=== PATIENT | male | born 1935 | race Caucasian/White ===

== ENCOUNTER → 2016-07-23 | Outpatient (CLI) | payer MEDICARE, BC ==
[~2016-07-23] MED LIST: ANTIVERT/2525 MG PO; ASPIRIN CHEWABL81 MG PO; CARDIZEM CD180 MG PO; CARDIZEM CD240 MG PO; COUMADIN2.5 M1 PO; COUMADIN5 M2 PO; DIGOXIN0.125 MG PO; LISINOPRIL40 MG PO; RESTASIS0.05% OU; TOPROL XL25 MG PO
[2016-07-23 11:53] LABS: HEMOGLOBIN 13.9 g/dl (14.0-18.0); MEAN CELL VOLUME 88.9 fl (80.0-94.0); MEAN CORPUSCULAR HGB 28.1 pg (27.0-31.0); MEAN CORPUSCULAR HGB CONC 31.6 g/dl (33.0-37.0); MEAN PLATELET VOLUME 9.4 fl (9.6-12.3); RED BLOOD COUNT 4.95 10*6/uL (4.50-5.90); RED CELL DISTRI WIDTH 16.9 % (0-14.5); WHITE BLOOD COUNT 8.9 10*3/uL (4.8-10.8)
[2016-07-23 12:29] LABS: ALBUMIN 3.6 gm/dl (3.1-4.5); ALKALINE PHOSPHATASE 116 U/L (45-117); BILIRUBIN, TOTAL 0.4 mg/dl (0.2-1.0); BUN 14 mg/dl (7-24); CARBON DIOXIDE 29 mmol/L (21-32); CHLORIDE 108 mmol/L (98-107); EST GLOM FILT AFRICAN AMERICAN > 60 ml/min; GLUCOSE 82 mg/dL (65-99); POTASSIUM 4.2 mmol/L (3.5-5.1); SGOT/AST 19 IU/L (3-35); SGPT/ALT 19 U/L (12-78); SODIUM 143 mmol/L (136-145)
[2016-07-23 12:57] LABS: VITAMIN D, 25-HYDROXY 25.6 ng/mL (30-100)
== END | disposition home or self-care (01) ==
LOC: LAB 11:34
PROVIDERS: Family Medicine
DX: C34.90 Malignant neoplasm of unspecified part of unspecified bronchus or lung (principal); D64.9 Anemia, unspecified; E55.9 Vitamin D deficiency, unspecified

== ENCOUNTER → 2016-08-03 | Outpatient (CLI) | payer MEDICARE, BC ==
--- NOTE | ~2016-08-03 | HM ---
[place], [place] HOLTER MONITOR REPORT [facility]KE [id number] UN[facility] #: [id number] ROOM: DOCTOR: SHAYNA GAINES MD BIRTHDATE: [birth year] DOS: 08/03/2016 24-HOUR HOLTER MONITOR The monitor was recorded from 08/03/2016 through 08/04/2016. The recording was analyzed and interpreted on 08/06/2016. INDICATIONS: Atrial fibrillation. FINDINGS: Basic rhythm is atrial fibrillation with a controlled ventricular response, average heart rate of 78. Heart rate varied from 48 beats per minute to 112 beats per minute. The patient had occasional premature ventricular contractions, 1 triplet and 12 couplets were recorded. No sustained ventricular tachycardia was seen. No prolonged pauses were recorded and the longest R-R interval was 1.9 seconds. The patient returned a diary which indicated several episodes of lightheadedness. These were all associated with atrial fibrillation with a controlled ventricular response. IMPRESSION: 1. Atrial fibrillation with excellent rate control. 2. Occasional premature ventricular contractions without sustained ventricular tachycardia. 3. Symptoms of lightheadedness did not correlate with any specific arrhythmias. SHAYNA GAINES MD CM:HOLTER:HOLTER MONITOR REPORT [id number] SHAYNA GAINES MD
[2016-08-03 10:06] LABS: PROTHROMBIN TIME 10.2 SECONDS (9.0-12.4)
== END | disposition home or self-care (01) ==
LOC: LAB 08:59
PROVIDERS: Family Medicine
DX: I48.2 Chronic atrial fibrillation (principal); Z79.01 Long term (current) use of anticoagulants

== ENCOUNTER → 2016-10-04 | Outpatient (CLI) | payer MEDICARE, BC ==
[2016-10-04 09:21] LABS: INTERNATIONAL NORM RATIO 1.7 (2.0-3.5); PROTHROMBIN TIME 18.7 SECONDS (9.0-12.4)
== END | disposition home or self-care (01) ==
LOC: LAB 08:29
PROVIDERS: Family Medicine
DX: Z79.01 Long term (current) use of anticoagulants (principal)

== ENCOUNTER → 2016-10-11 | Outpatient (CLI) | payer MEDICARE, BC ==
[2016-10-11 08:56] LABS: INTERNATIONAL NORM RATIO 1.7 (2.0-3.5); PROTHROMBIN TIME 18.1 SECONDS (9.0-12.4)
== END | disposition home or self-care (01) ==
LOC: LAB 08:08
PROVIDERS: Family Medicine
DX: Z79.01 Long term (current) use of anticoagulants (principal)

== ENCOUNTER → 2016-10-25 | Outpatient (CLI) | payer MEDICARE, BC ==
[2016-10-25 08:56] LABS: INTERNATIONAL NORM RATIO 2.1 (2.0-3.5); PROTHROMBIN TIME 22.9 SECONDS (9.0-12.4)
== END | disposition home or self-care (01) ==
LOC: LAB 08:08
PROVIDERS: Family Medicine
DX: Z79.01 Long term (current) use of anticoagulants (principal)

== ENCOUNTER → 2016-11-08 | Outpatient (CLI) | payer MEDICARE, BC ==
[2016-11-08 12:05] LABS: INTERNATIONAL NORM RATIO 1.9 (2.0-3.5)
== END | disposition home or self-care (01) ==
LOC: LAB 11:10
PROVIDERS: Family Medicine
DX: Z79.01 Long term (current) use of anticoagulants (principal)

== ENCOUNTER → 2016-11-20 | Outpatient (CLI) | payer MEDICARE, BC | END | disposition home or self-care (01) | LOC: RAD 09:59 | DX: I51.7 Cardiomegaly (principal) ==

== ENCOUNTER → 2016-12-11 | Outpatient (CLI) | payer MEDICARE, BC ==
[2016-12-11 09:46] LABS: PROTHROMBIN TIME 22.7 SECONDS (9.0-12.4)
== END | disposition home or self-care (01) ==
LOC: LAB 08:47
PROVIDERS: Family Medicine
DX: Z79.01 Long term (current) use of anticoagulants (principal)

== ENCOUNTER → 2017-01-10 | Outpatient (CLI) | payer MEDICARE, BC ==
[2017-01-10 09:01] LABS: PROTHROMBIN TIME 22.4 SECONDS (9.0-12.4)
== END | disposition home or self-care (01) ==
LOC: LAB 07:58
PROVIDERS: Family Medicine
DX: Z79.01 Long term (current) use of anticoagulants (principal)

== ENCOUNTER → 2017-01-24 | Outpatient (CLI) | payer MEDICARE, BC | END | disposition home or self-care (01) | LOC: RAD 08:59 | DX: C34.92 Malignant neoplasm of unspecified part of left bronchus or lung (principal); R07.9 Chest pain, unspecified ==

== ENCOUNTER → 2017-02-13 | Outpatient (CLI) | payer MEDICARE, BC ==
[2017-02-13 11:38] LABS: INTERNATIONAL NORM RATIO 2.4 (2.0-3.5); PROTHROMBIN TIME 26.9 SECONDS (9.0-12.4)
== END | disposition home or self-care (01) ==
LOC: LAB 10:51
PROVIDERS: Family Medicine
DX: Z79.01 Long term (current) use of anticoagulants (principal)

== ENCOUNTER → 2017-03-14 | Outpatient (CLI) | payer MEDICARE, BC ==
[2017-03-14 11:09] LABS: INTERNATIONAL NORM RATIO 2.2 (2.0-3.5)
== END | disposition home or self-care (01) ==
LOC: LAB 09:48
PROVIDERS: Family Medicine
DX: Z79.01 Long term (current) use of anticoagulants (principal)

== ENCOUNTER → 2017-04-16 | Outpatient (CLI) | payer MEDICARE, BC ==
[2017-04-16 10:36] LABS: INTERNATIONAL NORM RATIO 1.8 (2.0-3.5)
== END | disposition home or self-care (01) ==
LOC: LAB 09:37
PROVIDERS: Family Medicine
DX: Z51.81 Encounter for therapeutic drug level monitoring (principal); Z79.01 Long term (current) use of anticoagulants

== ENCOUNTER → 2017-04-30 | Outpatient (CLI) | payer MEDICARE, BC ==
[2017-04-30 11:12] LABS: FREE T4 1.09 ng/dl (0.76-1.46)
[2017-04-30 11:17] LABS: THYROID STIM HORMONE (HS) 1.04 uIU/ml (0.358-4.75)
== END | disposition home or self-care (01) ==
LOC: LAB 09:54 → US 05-02 15:00
PROVIDERS: Internal Medicine Endocrinology, Diabetes & Metabolism
DX: E04.1 Nontoxic single thyroid nodule (principal); I10 Essential (primary) hypertension

== ENCOUNTER → 2017-05-21 | Outpatient (CLI) | payer MEDICARE, BC ==
[2017-05-21 11:04] LABS: INTERNATIONAL NORM RATIO 2.2 (2.0-3.5)
== END | disposition home or self-care (01) ==
LOC: LAB 10:05
PROVIDERS: Family Medicine
DX: Z79.01 Long term (current) use of anticoagulants (principal)

== ENCOUNTER → 2017-07-22 | Outpatient (CLI) | payer MEDICARE, BC ==
[2017-07-22 11:29] LABS: INTERNATIONAL NORM RATIO 2.1 (2.0-3.5)
== END | disposition home or self-care (01) ==
LOC: LAB 10:36
PROVIDERS: Family Medicine
DX: Z51.81 Encounter for therapeutic drug level monitoring (principal); Z79.01 Long term (current) use of anticoagulants

== ENCOUNTER → 2017-08-27 | Outpatient (CLI) | payer MEDICARE, BC ==
[2017-08-27 12:02] LABS: INTERNATIONAL NORM RATIO 2.2 (2.0-3.5)
== END | disposition home or self-care (01) ==
LOC: LAB 11:03
PROVIDERS: Family Medicine
DX: I48.91 Unspecified atrial fibrillation (principal)

== ENCOUNTER → 2017-09-26 | Outpatient (CLI) | payer MEDICARE, BC | END | disposition home or self-care (01) | LOC: LAB 10:44 | PROVIDERS: Family Medicine | DX: I48.91 Unspecified atrial fibrillation (principal) ==

== ENCOUNTER → 2017-10-30 | Outpatient (CLI) | payer MEDICARE, BC ==
[2017-10-30 15:08] LABS: INTERNATIONAL NORM RATIO 2.5 (2.0-3.5)
== END | disposition home or self-care (01) ==
LOC: LAB 14:44
PROVIDERS: Family Medicine
DX: I48.91 Unspecified atrial fibrillation (principal)

== ENCOUNTER → 2017-11-26 | Outpatient (CLI) | payer MEDICARE, BC ==
[2017-11-26 10:25] LABS: INTERNATIONAL NORM RATIO 2.9 (2.0-3.5)
== END | disposition home or self-care (01) ==
LOC: LAB 09:39
PROVIDERS: Family Medicine
DX: I48.91 Unspecified atrial fibrillation (principal)

== ENCOUNTER → 2017-12-30 | Outpatient (CLI) | payer MEDICARE, BC ==
[2017-12-30 09:47] LABS: INTERNATIONAL NORM RATIO 2.6 (2.0-3.5)
== END | disposition home or self-care (01) ==
LOC: LAB 08:23
PROVIDERS: Family Medicine
DX: I48.91 Unspecified atrial fibrillation (principal)

== ENCOUNTER → 2018-01-28 | Outpatient (CLI) | payer MEDICARE, BC ==
[2018-01-28 12:16] LABS: INTERNATIONAL NORM RATIO 2.5 (2.0-3.5)
== END | disposition home or self-care (01) ==
LOC: LAB 11:33
PROVIDERS: Family Medicine
DX: I48.91 Unspecified atrial fibrillation (principal)

== ENCOUNTER → 2018-03-18 | Outpatient (CLI) | payer MEDICARE, BC | END | disposition home or self-care (01) | LOC: LAB 08:45 | PROVIDERS: Family Medicine | DX: I48.91 Unspecified atrial fibrillation (principal) ==

== ENCOUNTER → 2018-04-02 | Outpatient (CLI) | payer MEDICARE, BC ==
[2018-04-02 11:27] LABS: HEMATOCRIT 49.1 % (42.0-52.0); HEMOGLOBIN 16.4 g/dl (14.0-18.0); MEAN CELL VOLUME 89.8 fl (80.0-94.0); MEAN CORPUSCULAR HGB CONC 33.4 g/dl (33.0-37.0); MEAN PLATELET VOLUME 10.6 fl (9.6-12.3); RED BLOOD COUNT 5.47 10*6/uL (4.50-5.90); RED CELL DISTRI WIDTH 14.3 % (0-14.5); WHITE BLOOD COUNT 8.7 10*3/uL (4.8-10.8)
[2018-04-02 11:28] LABS: ALBUMIN 3.7 gm/dl (3.1-4.5); ALKALINE PHOSPHATASE 75 U/L (45-117); BUN 15 mg/dl (7-24); CHLORIDE 109 mmol/L (98-107); CHOLESTEROL 172 mg/dL (<200); CREATININE 1.17 mg/dL (0.70-1.30); HDL CHOLESTEROL 32 mg/dl (40-60); LDL CHOLESTEROL 114 mg/dL (9-159); SGOT/AST 17 IU/L (3-35); SGPT/ALT 20 U/L (12-78); SODIUM 142 mmol/L (136-145); TOTAL PROTEIN 7.3 gm/dL (6.4-8.2); TRIGLYCERIDES 129 mg/dl (<150); VLDL CHOLESTEROL 26 mg/dL (6-40)
== END | disposition home or self-care (01) ==
LOC: LAB 10:01
PROVIDERS: Family Medicine
DX: Z13.220 Encounter for screening for lipoid disorders (principal); E78.00 Pure hypercholesterolemia, unspecified; I48.91 Unspecified atrial fibrillation; C34.90 Malignant neoplasm of unspecified part of unspecified bronchus or lung; E04.1 Nontoxic single thyroid nodule

== ENCOUNTER → 2018-04-28 | Outpatient (CLI) | payer MEDICARE, BC | END | disposition home or self-care (01) | LOC: US 03:32 | DX: E04.2 Nontoxic multinodular goiter (principal) ==

== ENCOUNTER → 2018-05-21 | Outpatient (CLI) | payer MEDICARE, BC ==
[2018-05-21 11:47] LABS: INTERNATIONAL NORM RATIO 2.5 (2.0-3.5)
== END | disposition home or self-care (01) ==
LOC: LAB 11:01
PROVIDERS: Family Medicine
DX: I48.91 Unspecified atrial fibrillation (principal)

== ENCOUNTER → 2018-08-01 | Outpatient (CLI) | payer MEDICARE, BC ==
[~2018-08-01] MED LIST changes: +INDOMETHACIN25 M1 PO
[2018-08-01 09:17] LABS: INTERNATIONAL NORM RATIO 2.9 (2.0-3.5)
== END | disposition home or self-care (01) ==
LOC: LAB 08:24
PROVIDERS: Family Medicine
DX: I48.91 Unspecified atrial fibrillation (principal)

== ENCOUNTER → 2018-08-22 | Outpatient (CLI) | payer MEDICARE, BC | END | disposition home or self-care (01) | LOC: RAD 16:00 | DX: R06.2 Wheezing (principal); R06.02 Shortness of breath; Z87.891 Personal history of nicotine dependence ==

== ENCOUNTER → 2018-09-01 | Outpatient (CLI) | payer MEDICARE, BC ==
[2018-09-01 12:23] LABS: INTERNATIONAL NORM RATIO 2.2 (2.0-3.5)
== END | disposition home or self-care (01) ==
LOC: LAB 11:40
PROVIDERS: Family Medicine
DX: I48.91 Unspecified atrial fibrillation (principal)

== ENCOUNTER 2018-09-07 07:16 | Emergency (ER) | payer MEDICARE, BC ==
[~2018-09-07] VITALS: Ht 177.8 cm; Wt 83.0 kg
[~2018-09-07 07:16] MED LIST changes: -INDOMETHACIN25 M1 PO
[2018-09-07] MEDS ORDERED: INDOMETHACIN25 M1 PO (07:38)
== END 2018-09-07 08:30 | disposition home or self-care (01) ==
LOC: ED 07:16
DX: M10.071 Idiopathic gout, right ankle and foot (principal); I48.91 Unspecified atrial fibrillation; Z88.0 Allergy status to penicillin; Z88.2 Allergy status to sulfonamides; Z88.8 Allergy status to other drugs, medicaments and biological substances; Z88.1 Allergy status to other antibiotic agents; Z79.899 Other long term (current) drug therapy; Z79.82 Long term (current) use of aspirin

== ENCOUNTER → 2018-10-02 | Outpatient (CLI) | payer MEDICARE, BC ==
[~2018-10-02] MED LIST changes: +INDOMETHACIN25 M1 PO
[2018-10-02 13:59] LABS: HEMATOCRIT 48.2 % (42.0-52.0); HEMOGLOBIN 15.7 g/dl (14.0-18.0); MEAN CELL VOLUME 91.3 fl (80.0-94.0); MEAN CORPUSCULAR HGB 29.7 pg (27.0-31.0); MEAN CORPUSCULAR HGB CONC 32.6 g/dl (33.0-37.0); MEAN PLATELET VOLUME 10.4 fl (9.6-12.3); RED BLOOD COUNT 5.28 10*6/uL (4.50-5.90); RED CELL DISTRI WIDTH 14.4 % (0-14.5)
[2018-10-02 14:14] LABS: ALBUMIN 3.5 gm/dl (3.1-4.5); ALKALINE PHOSPHATASE 88 U/L (45-117); BUN 19 mg/dl (7-24); CHLORIDE 111 mmol/L (98-107); CHOLESTEROL 151 mg/dL (<200); CREATININE 1.35 mg/dL (0.70-1.30); HDL CHOLESTEROL 29 mg/dl (40-60); LDL CHOLESTEROL 90 mg/dL (9-159); POTASSIUM 4.2 mmol/L (3.5-5.1); SGOT/AST 19 IU/L (3-35); SGPT/ALT 19 U/L (12-78); SODIUM 143 mmol/L (136-145); TOTAL PROTEIN 7.1 gm/dL (6.4-8.2); TRIGLYCERIDES 159 mg/dl (<150); VLDL CHOLESTEROL 32 mg/dL (6-40)
[2018-10-02 14:16] LABS: FREE T4 1.12 ng/dl (0.76-1.46)
[2018-10-02 14:21] LABS: THYROID STIM HORMONE (HS) 0.909 uIU/ml (0.358-4.75)
== END | disposition home or self-care (01) ==
LOC: LAB 13:17
PROVIDERS: Family Medicine
DX: E78.00 Pure hypercholesterolemia, unspecified (principal); E55.9 Vitamin D deficiency, unspecified

== ENCOUNTER → 2018-11-07 | Outpatient (CLI) | payer MEDICARE, BC | END | disposition home or self-care (01) | LOC: CT 12:51 | DX: J43.9 Emphysema, unspecified (principal); Z87.891 Personal history of nicotine dependence ==

== ENCOUNTER → 2018-11-26 | Outpatient (CLI) | payer MEDICARE, BC | END | disposition home or self-care (01) | LOC: LAB 07:35 | PROVIDERS: Family Medicine | DX: I48.91 Unspecified atrial fibrillation (principal) ==

== ENCOUNTER → 2019-01-26 | Outpatient (CLI) | payer MEDICARE, BC ==
[2019-01-26 08:52] LABS: HEMATOCRIT 51.4 % (42.0-52.0); HEMOGLOBIN 16.5 g/dl (14.0-18.0); MEAN CELL VOLUME 92.6 fl (80.0-94.0); MEAN CORPUSCULAR HGB 29.7 pg (27.0-31.0); MEAN CORPUSCULAR HGB CONC 32.1 g/dl (33.0-37.0); MEAN PLATELET VOLUME 10.3 fl (9.6-12.3); RED BLOOD COUNT 5.55 10*6/uL (4.50-5.90); RED CELL DISTRI WIDTH 14.3 % (0-14.5); WHITE BLOOD COUNT 8.6 10*3/uL (4.8-10.8)
[2019-01-26 09:19] LABS: ALBUMIN 3.7 gm/dl (3.1-4.5); ALKALINE PHOSPHATASE 81 U/L (45-117); BUN 19 mg/dl (7-24); CHLORIDE 108 mmol/L (98-107); CHOLESTEROL 165 mg/dL (<200); CREATININE 1.31 mg/dL (0.70-1.30); HDL CHOLESTEROL 32 mg/dl (40-60); LDL CHOLESTEROL 109 mg/dL (9-159); POTASSIUM 3.9 mmol/L (3.5-5.1); SGOT/AST 19 IU/L (3-35); SGPT/ALT 16 U/L (12-78); SODIUM 141 mmol/L (136-145); TOTAL PROTEIN 7.3 gm/dL (6.4-8.2); TRIGLYCERIDES 122 mg/dl (<150); VLDL CHOLESTEROL 24 mg/dL (6-40)
== END | disposition home or self-care (01) ==
LOC: LAB 08:35
PROVIDERS: Family Medicine
DX: E78.00 Pure hypercholesterolemia, unspecified (principal); I48.91 Unspecified atrial fibrillation; E55.9 Vitamin D deficiency, unspecified; N18.3 Chronic kidney disease, stage 3 (moderate); C34.92 Malignant neoplasm of unspecified part of left bronchus or lung

== ENCOUNTER → 2019-03-05 | Outpatient (CLI) | payer MEDICARE, BC ==
[2019-03-05 10:12] LABS: INTERNATIONAL NORM RATIO 1.8 (2.0-3.5)
== END | disposition home or self-care (01) ==
LOC: LAB 08:46
PROVIDERS: Family Medicine
DX: I48.91 Unspecified atrial fibrillation (principal)

== ENCOUNTER → 2019-04-03 | Outpatient (CLI) | payer MEDICARE, BC | END | disposition home or self-care (01) | LOC: LAB 09:06 | PROVIDERS: Family Medicine | DX: I48.91 Unspecified atrial fibrillation (principal) ==

== ENCOUNTER → 2019-04-16 | Outpatient (CLI) | payer MEDICARE, BC ==
[2019-04-16 08:42] LABS: ALBUMIN 3.6 gm/dl (3.1-4.5); ALKALINE PHOSPHATASE 80 U/L (45-117); BUN 14 mg/dl (7-24); CHLORIDE 109 mmol/L (98-107); CREATININE 1.19 mg/dL (0.70-1.30); FREE T4 1.08 ng/dl (0.76-1.46); POTASSIUM 3.8 mmol/L (3.5-5.1); SGOT/AST 16 IU/L (3-35); SGPT/ALT 18 U/L (12-78); SODIUM 142 mmol/L (136-145)
== END | disposition home or self-care (01) ==
LOC: LAB 07:41
PROVIDERS: Internal Medicine Endocrinology, Diabetes & Metabolism
DX: E04.2 Nontoxic multinodular goiter (principal)

== ENCOUNTER → 2019-05-05 | Outpatient (CLI) | payer MEDICARE, BC ==
[2019-05-05 10:54] LABS: INTERNATIONAL NORM RATIO 1.7 (2.0-3.5)
== END | disposition home or self-care (01) ==
LOC: LAB 09:59
PROVIDERS: Family Medicine
DX: I48.91 Unspecified atrial fibrillation (principal)

== ENCOUNTER → 2019-05-13 | Outpatient (CLI) | payer MEDICARE, BC ==
[2019-05-13 09:42] LABS: INTERNATIONAL NORM RATIO 1.9 (2.0-3.5)
== END | disposition home or self-care (01) ==
LOC: LAB 08:48
PROVIDERS: Family Medicine
DX: I48.91 Unspecified atrial fibrillation (principal)

== ENCOUNTER → 2019-05-20 | Outpatient (CLI) | payer MEDICARE, BC ==
[2019-05-20 11:02] LABS: INTERNATIONAL NORM RATIO 2.8 (2.0-3.5)
== END | disposition home or self-care (01) ==
LOC: LAB 10:02
PROVIDERS: Family Medicine
DX: I48.91 Unspecified atrial fibrillation (principal)

== ENCOUNTER → 2019-06-24 | Outpatient (CLI) | payer MEDICARE, BC ==
[2019-06-24 09:04] LABS: INTERNATIONAL NORM RATIO 2.9 (2.0-3.5)
== END | disposition home or self-care (01) ==
LOC: LAB 08:16
PROVIDERS: Family Medicine
DX: I48.91 Unspecified atrial fibrillation (principal)

== ENCOUNTER → 2019-07-06 | Outpatient (CLI) | payer MEDICARE, BC | END | disposition home or self-care (01) | LOC: RAD 09:22 | DX: R05 Cough (principal) ==

== ENCOUNTER → 2019-07-13 | Outpatient (CLI) | payer MEDICARE, BC ==
[2019-07-13 10:44] LABS: INTERNATIONAL NORM RATIO 2.1 (2.0-3.5)
== END | disposition home or self-care (01) ==
LOC: LAB 10:17
PROVIDERS: Family Medicine
DX: I48.91 Unspecified atrial fibrillation (principal)

== ENCOUNTER → 2019-08-13 | Outpatient (CLI) | payer MEDICARE, BC ==
[2019-08-13 09:47] LABS: INTERNATIONAL NORM RATIO 1.8 (2.0-3.5)
== END | disposition home or self-care (01) ==
LOC: LAB 08:55
PROVIDERS: Family Medicine
DX: I48.91 Unspecified atrial fibrillation (principal)

== ENCOUNTER → 2019-09-11 | Outpatient (CLI) | payer MEDICARE, BC ==
[2019-09-11 11:24] LABS: INTERNATIONAL NORM RATIO 1.9 (2.0-3.5)
== END | disposition home or self-care (01) ==
LOC: LAB 10:49
PROVIDERS: Family Medicine
DX: I48.91 Unspecified atrial fibrillation (principal); Z79.01 Long term (current) use of anticoagulants

== ENCOUNTER 2019-11-10 22:34 | Emergency (ER) | payer MEDICARE, BC ==
[2019-11-10] VITALS (8 sets, daily range): BP systolic 138–180; BP diastolic 81–94
[~2019-11-10] VITALS: Ht 177.8 cm; Wt 86.2 kg
--- NOTE | 2019-11-10 22:47 | NUR ---
PT MEDICATED WITH 1 SL NITRO TAB PER MD MCBRIDE VERBAL ORDER.
[2019-11-10] MEDS ORDERED: WARFARIN SOD5 MG PO (22:48)
[2019-11-10] MEDS ORDERED: AVPAK AZITHROM250 M1 PO (22:48)
[2019-11-10] MEDS ORDERED: METOPROLOL25 MG PO (22:48)
--- NOTE | 2019-11-10 22:55 | NUR ---
PT REPORTS RELIEF FROM CHEST PAIN AT THIS TIME.STILL DIFFICULTY BREATHING.O2 IN PL[address] VIA NC.1 INCH NITRO PASTE APPLIED TO PT UPPER RT BACK.
--- NOTE | 2019-11-10 23:03 | NUR ---
PT REPORTS PAIN 0/10 AT THIS TIME.
--- NOTE | 2019-11-10 23:10 | NUR ---
REPORT GIVEN TO LEELEE @ [facility] MEDCALL.ADVISED TO ARRANGE TRANSPORT VIA GROUND TO [facility] [employer] SUPER[employer]OR.
[2019-11-10 23:13] LABS: BASO # 0.1 10*3/uL (0.0-0.1); BASO % 0.9 % (0.0-1.0); EOS # 0.2 10*3/uL (0.0-0.4); EOS % 2.1 % (1.0-4.0); HEMATOCRIT 54.1 % (42.0-52.0); LYMPH # 2.7 10*3/uL (1.3-4.4); LYMPH % 24.1 % (27.0-41.0); MEAN CORPUSCULAR HGB 30.3 pg (27.0-31.0); MEAN CORPUSCULAR HGB CONC 32.9 g/dl (33.0-37.0); MEAN PLATELET VOLUME 10.9 fl (9.6-12.3); MONO % 8.8 % (3.0-9.0); NEUT # 7.2 10*3/uL (2.3-7.9); NEUT % 63.8 % (47.0-73.0); PLATELET COUNT AUTOMATED 294 10*3/uL (130-400); RED BLOOD COUNT 5.88 10*6/uL (4.50-5.90); RED CELL DISTRI WIDTH 14.3 % (0-14.5); WHITE BLOOD COUNT 11.3 10*3/uL (4.8-10.8)
--- NOTE | 2019-11-10 23:13 | NUR ---
PT MEDICATED WITH MORPHINE PER EMAR FOR PAIN 07/17.
[2019-11-10 23:23] LABS: ACT PARTIAL THROMBO TIME 40.8 SECONDS (20.0-32.1); INTERNATIONAL NORM RATIO 2.3 (2.0-3.5)
--- NOTE | 2019-11-10 23:24 | NUR ---
PT REPORTS PAIN IS RELIEVED.PT STATES BREATHING IS A LITTLE BETTER AT THIS TIME.
--- NOTE | 2019-11-10 23:25 | NUR ---
PT DENIES ANY OPEN WOUNDS,SORES OR CUTS AT THIS TIME.
[2019-11-10 23:30] LABS: ALBUMIN 3.8 gm/dl (3.1-4.5); CREATININE 1.85 mg/dL (0.70-1.30); POTASSIUM 4.1 mmol/L (3.5-5.1); TOTAL PROTEIN 7.9 gm/dL (6.4-8.2)
--- NOTE | 2019-11-10 23:30 | NUR ---
SHARYN ON UNIT FOR PT TRANSPORT TO [facility] LEGAL SERVICES MANAGER.
[2019-11-10 23:33] LABS: TROPONIN I 0.655 ng/ml (<0.045)
--- NOTE | 2019-11-10 23:33 | NUR ---
PER MD RAE NESBITT, PT MEDICATED WITH 324 ASA PER FEED CRUSHER OPERATOR ORDER AT [facility].
--- NOTE | 2019-11-10 23:40 | NUR ---
NURSE TO NURSE REPORT GIVEN TO LARRY HERNANDEZ WITH [facility] VP SECURITIES.
== END 2019-11-10 23:45 | disposition short-term general hospital (02) ==
LOC: ED 22:34 → EDHOLD 23:15 → ED 23:45
PROVIDERS: Emergency Medicine
DX: I21.3 ST elevation (STEMI) myocardial infarction of unspecified site (principal); I10 Essential (primary) hypertension; I48.91 Unspecified atrial fibrillation; M10.9 Gout, unspecified; Z88.2 Allergy status to sulfonamides; Z88.8 Allergy status to other drugs, medicaments and biological substances; Z88.0 Allergy status to penicillin; Z79.82 Long term (current) use of aspirin; Z79.899 Other long term (current) drug therapy

== ENCOUNTER 2020-03-19 10:10 | Inpatient (IN) | payer MEDICARE, BC ==
[~2020-03-19] VITALS: Wt 82.6 kg
[~2020-03-19 10:10] MED LIST changes: +AVPAK AZITHROM250 M1 PO; +METOPROLOL25 MG PO; +WARFARIN SOD5 MG PO
[2020-03-19 10:17] VITALS: BP 161/86
[2020-03-19 10:30] LABS: BASO # 0.1 10*3/uL (0.0-0.1); BASO % 0.6 % (0.0-1.0); EOS # 0.1 10*3/uL (0.0-0.4); HEMATOCRIT 48.3 % (42.0-52.0); LYMPH # 1.6 10*3/uL (1.3-4.4); LYMPH % 12.4 % (27.0-41.0); MEAN CELL VOLUME 89.4 fl (80.0-94.0); MEAN CORPUSCULAR HGB 28.9 pg (27.0-31.0); MEAN CORPUSCULAR HGB CONC 32.3 g/dl (33.0-37.0); MEAN PLATELET VOLUME 10.9 fl (9.6-12.3); MONO # 1.1 10*3/uL (0.1-1.0); MONO % 8.5 % (3.0-9.0); NEUT # 9.7 10*3/uL (2.3-7.9); NEUT % 77.2 % (47.0-73.0); PLATELET COUNT AUTOMATED 306 10*3/uL (130-400); RED CELL DISTRI WIDTH 15.1 % (0-14.5); WHITE BLOOD COUNT 12.6 10*3/uL (4.8-10.8)
[2020-03-19 10:41] LABS: ACT PARTIAL THROMBO TIME 47.3 SECONDS (20.0-32.1); INTERNATIONAL NORM RATIO 2.8 (2.0-3.5)
[2020-03-19 10:52] LABS: ALBUMIN 3.6 gm/dl (3.1-4.5); ALKALINE PHOSPHATASE 106 U/L (45-117); BUN 14 mg/dl (7-24); CHLORIDE 109 mmol/L (98-107); CREATININE 1.21 mg/dL (0.70-1.30); POTASSIUM 3.9 mmol/L (3.5-5.1); SGOT/AST 24 IU/L (3-35); SGPT/ALT 28 U/L (12-78); SODIUM 141 mmol/L (136-145); TOTAL PROTEIN 6.9 gm/dL (6.4-8.2)
[2020-03-19 11:08] LABS: TROPONIN I 0.352 ng/ml (<0.045)
[2020-03-19 11:57] VITALS: BP 155/77
[2020-03-19 13:16] VITALS: BP 172/88
--- NOTE | 2020-03-19 13:16 | NUR ---
A 84, admitted to 4E, under the services of Dr. EVELINE VINCENT,TIFFANY Plasencia with a diagnosis of CHEST PAIN. Chief complaint is CHEST PAIN. Patient arrived via wheel chair from ER. Monitor applied. Initial assessment completed. Vital signs taken and recorded. DR. EVELINE VINCENT,TIFFANY Plasencia notified of admission to the unit. Orders received. See assessment for past medical history, medications and allergies. Patient and/or family oriented to unit. [facility] visitation policy reviewed. Clothing/patient valuable form completed. SCOTT DE ANDA
[2020-03-19 13:27] VITALS: BP 172/88
--- NOTE | 2020-03-19 13:35 | NUR ---
DR CAMPOS ANSWERING SERVICE NOTIFIED OF NEW CONSULT FOR CHEST PAIN AND ALSO LEFT FOR CALL BACK REGARDING ELEVATED TROPONIN OF 1.620.
[2020-03-19] MEDS ORDERED: LIPITOR80 MG PO (13:37)
[2020-03-19] MEDS ORDERED: PLAVIX75 M1 PO (13:37)
--- NOTE | 2020-03-19 13:53 | NUR ---
MADE DR. ABEBE AWARE OF CONSULT AND PT ELEVATED TROPONIN. 1.620, HE WILL SEE PT SHORTLY.
--- NOTE | 2020-03-19 14:15 | NUR ---
DR. MOSQUERA MADE AWARE OF PT ADMISSION AND PT REQUESTING MEAL TRAY. NEW ORDERS OBTAINED.
[2020-03-19 16:00] VITALS: BP 155/74
--- NOTE | 2020-03-19 16:50 | NUR ---
MORPHINE 2 MG GIVEN FOR C/O CHEST PAIN AND PRESSURE.-09/14.WILL CONTINUE TO MONITOR. AWAITING [facility] TO CALL WITH BED. PT TO TRANSFER TO [facility] TO F/U WITH DR HERMAN. PT CURRENTLY PLACED ON 2LNC FOR COMFORT. VITALS OBTAINED. DR MOSQUERA INTO SPEAK TO FAMILY AT BEDSIDE. PT CURRENTLY DENIES CP/PRESSURE. MORPHINE SEEMS TO RESOLVED FOR THE MOMENT.WILL CONTINUE TO MONITOER. CALL LIGHT IN REACH.
--- NOTE | 2020-03-19 17:00 | NUR ---
DR. CAMPOS AT BEDSIDE FOR CONSULT.
--- NOTE | 2020-03-19 17:03 | NUR ---
IV started BABATUNDE with #22 protective cath after 1 attempts. Site prepped with Chloroprep. Sterile dressing applied. Patient tolerated procedure well. by joann garcia rn.
[2020-03-19 17:10] VITALS: BP 162/88
--- NOTE | 2020-03-19 17:20 | NUR ---
PER PT CHEST PAIN/PRESSURE IS GONE, MORPHINE REPORTED EFFECTIVE.
--- NOTE | 2020-03-19 18:52 | NUR ---
REPORT CALLED TO [facility] PRESBY TO LARRY OSORIO.
--- NOTE | 2020-03-19 18:53 | NUR ---
Discharge instructions reviewed with patient/family. Patient receptive and verbalizes understanding. Follow-up care arranged. Written instructions given to patient/family.TRANSPORTED TO [facility]IA [facility] FOR TX OF ACUTE SC. SCOTT DE ANDA
== END 2020-03-19 18:53 | disposition short-term general hospital (02) | DRG 281 ==
LOC: ED 10:10 → EDHOLD 12:53 → 4E 13:08
PROVIDERS: Emergency Medicine; ADMIT Internal Medicine; ATTEND Internal Medicine
DX: I21.4 Non-ST elevation (NSTEMI) myocardial infarction (principal); I48.21 Permanent atrial fibrillation; I25.10 Atherosclerotic heart disease of native coronary artery without angina pectoris; E50.7 Other ocular manifestations of vitamin A deficiency; H27.01 Aphakia, right eye; I10 Essential (primary) hypertension; E78.2 Mixed hyperlipidemia; M1A.9XX0 Chronic gout, unspecified, without tophus (tophi); Z88.0 Allergy status to penicillin; Z88.2 Allergy status to sulfonamides; Z95.5 Presence of coronary angioplasty implant and graft; Z90.49 Acquired absence of other specified parts of digestive tract; Z82.49 Family history of ischemic heart disease and other diseases of the circulatory system; Z79.899 Other long term (current) drug therapy

== ENCOUNTER 2020-04-14 09:57 | Observation (INO) | payer MEDICARE, BC ==
[~2020-04-14] VITALS: Ht 177.8 cm; Wt 81.6 kg
[2020-04-14] VITALS (10 sets, daily range): BP systolic 122–158; BP diastolic 63–86
[~2020-04-14 09:57] MED LIST changes: +LIPITOR80 MG PO; +PLAVIX75 M1 PO
[2020-04-14 10:15] LABS: BASO % 0.3 % (0.0-1.0); EOS # 0.1 10*3/uL (0.0-0.4); EOS % 1.1 % (1.0-4.0); HEMATOCRIT 44.6 % (42.0-52.0); LYMPH # 1.5 10*3/uL (1.3-4.4); LYMPH % 12.5 % (27.0-41.0); MEAN CELL VOLUME 91.4 fl (80.0-94.0); MEAN CORPUSCULAR HGB 28.9 pg (27.0-31.0); MEAN CORPUSCULAR HGB CONC 31.6 g/dl (33.0-37.0); MEAN PLATELET VOLUME 9.6 fl (9.6-12.3); MONO # 1.3 10*3/uL (0.1-1.0); MONO % 11.6 % (3.0-9.0); NEUT # 8.6 10*3/uL (2.3-7.9); NEUT % 74.2 % (47.0-73.0); PLATELET COUNT AUTOMATED 365 10*3/uL (130-400); RED BLOOD COUNT 4.88 10*6/uL (4.50-5.90); RED CELL DISTRI WIDTH 15.6 % (0-14.5); WHITE BLOOD COUNT 11.6 10*3/uL (4.8-10.8)
[2020-04-14 10:26] LABS: ACT PARTIAL THROMBO TIME 41.2 SECONDS (20.0-32.1); INTERNATIONAL NORM RATIO 1.4 (2.0-3.5)
--- NOTE | 2020-04-14 10:28 | NUR ---
PT STATING PAIN DECREASED TO A 1 ON 1-10 SCALE AFTER NITRO.SG TERRAZAS DNP NOTIFIED.
[2020-04-14 10:35] LABS: ALBUMIN 3.6 gm/dl (3.1-4.5); ALKALINE PHOSPHATASE 98 U/L (45-117); BUN 14 mg/dl (7-24); CHLORIDE 111 mmol/L (98-107); CREATININE 1.21 mg/dL (0.70-1.30); SGOT/AST 15 IU/L (3-35); SGPT/ALT 21 U/L (12-78); SODIUM 141 mmol/L (136-145); TOTAL PROTEIN 7.2 gm/dL (6.4-8.2)
[2020-04-14 10:37] LABS: TROPONIN I 0.081 ng/ml (<0.045)
--- NOTE | 2020-04-14 10:43 | NUR ---
PT POSITIONED FOR COMFORT WATCHING T.V.,SAFETY PRECAUTIONS INTACT AND CALL LIGHT WITHIN REACH.
[2020-04-14] MEDS ORDERED: ZESTRIL10 MG PO (11:21)
[2020-04-14] MEDS ORDERED: LASIX20 MG PO (11:21)
--- NOTE | 2020-04-14 14:42 | NUR ---
PT WITH SEVERAL RED/ECCHYMOTIC AREAS NOTED TO BUE D/T "WHERE THEY GET BLOOD FROM ME OR I BUMP MYSELF AN I AM ON BLOOD THINNERS". NO OPEN AREAS NOTED.
--- NOTE | 2020-04-14 16:28 | NUR ---
PT WITH UPPER EPIGASTRIC PAIN @ A 3 ON 1-10 SCALE,KAYLA TERRAZAS DNP NOTIIFED.
--- NOTE | 2020-04-14 16:42 | NUR ---
PT STATING PAIN FREE @ THIS TIME,PT EATING LUNCH TRAY AND NO ADDITIONAL COMPLAINTS VOICED.CALL LIGHT WITHIN REACH.
[2020-04-14] MEDS ORDERED: XARE20MG PO ×2 (19:11→22:42)
--- NOTE | 2020-04-14 19:28 | NUR ---
DR. MANJARREZ(WEB SITE DESIGNER ACQUISITION LEAD)CALLED IN TO CONFIRM CONSULT FOR PT AND POSSIBLE STRESS TEST ORDER IN AM DEEMED NECESSARY PER WEB SITE DESIGNER INSTRUCTED PER DR MUÑOZ.
[2020-04-14] MEDS ORDERED: METOPROLOL SUCC25 M2 PO (19:38)
[2020-04-14] MEDS ORDERED: ATORVASTATIN CA80 M1 PO (22:26)
--- NOTE | 2020-04-14 22:30 | NUR ---
The assessment has been completed. TORI TENA Time: 2229 A 84 year old MALE admitted to under services of DR. WANDA VINCENT,EBONI. Pt. arrived via ambulatory from ER. Chief complaint: MIDSTERNAL CHEST PRESSURE WITH PAIN UP INTO HIS NECK.HAD 2 STENTS PLACED ON Mar, 4 STENTS PLACED IN NOVEMBER. WOKE UP WITH PRESSURE AT 3 AM. . TORI TENA
--- NOTE | 2020-04-14 23:00 | NUR ---
CALL PLACED TO DR CAMPOS ANSWERING SERVICE REGARDING PTS CONTINUED CHEST PAIN. PT STATES NITRO PATCH IS NOT WORKING AND HE FEELS WORSE THAN WHEN HE CAME IN EARLIER. 8/10 MIDSTERNAL CHEST ACHING/PRESSURE FEELING THAT IS WORSE W INSPIRATION. PT STATES HE IS MINIMALLY SOB AND IT IS WORSE W EXERTION.VSS AT THIS TIME. SLIGHT EXP WHEEZE NOTED. AFIB ON THE MONITOR 90-LOW 100'S. AWAITING CALL BACK. WILL CONTINUE TO MONITOR. CALL LIGHT WITHIN REACH.
--- NOTE | 2020-04-14 23:37 | NUR ---
STILL WAITING CALL BACK FROM CARDIOLOGY. PT SITTING UP RESTING IN BED. STATES HE FEELS A LITTLE BETTER AND IS GOING TO TRY AND SLEEP. RESPS EASY AND NON LABORED. CALL LIGHT WITHIN REACH. WILL CONTINUE TO MONITOR.
--- NOTE | 2020-04-14 23:46 | NUR ---
PE DR MU[facility]
[2020-04-15] VITALS (9 sets, daily range): BP systolic 94–153; BP diastolic 51–85
--- NOTE | 2020-04-15 00:26 | NUR ---
AWAITING BED TO TRANSFER PT TO [facility]. PT CURRENTLY SLEEPING. RESPS EASY AND NON LABORED. NO S/S OF DISTRESS NOTED. WILL CONTINUE TO MONITOR. CALL LIGHT WITHIN REACH.
--- NOTE | 2020-04-15 00:45 | NUR ---
PT TRANSFERRED TO ICU 3 FROM FOR CHEST PAIN. PT AWAKE, ALERT AND ORIENTED, SKIN WARM AND DRY. REPORT RECEIVED FROM TORI. BP 153/85, P 99, R 20, T 97.5, O2 93% ON RA. O2 AT 2L NC PLACED FOR COMFORT. PT STATES PAIN IS A 3 OR 4 OUT OF 10. HURT WORSE WITH INSPIRATION.
--- NOTE | 2020-04-15 00:45 | NUR ---
PT TRANSFERRED TO [facility]. PER PT DO NOT CALL HIS UNTIL THE MORNING BECAUSE SHE IS SLEEPING.
--- NOTE | 2020-04-15 01:00 | NUR ---
DR MUÑOZ CALLED AND NEW ORDERS RECEIVED.
--- NOTE | 2020-04-15 09:30 | NUR ---
DISCHARGED TO [facility] ORACLE ASCP CONSULTANT. REPORT GIVEN TO ER.
== END 2020-04-15 09:30 | disposition home or self-care (01) ==
LOC: ED 09:57 → EDHOLD 14:16 → 5E 22:21 → ICCU 04-15 00:41
PROVIDERS: Emergency Medicine; ADMIT Internal Medicine; ATTEND Internal Medicine
DX: R07.2 Precordial pain (principal); I25.10 Atherosclerotic heart disease of native coronary artery without angina pectoris; I48.91 Unspecified atrial fibrillation; I10 Essential (primary) hypertension; E78.2 Mixed hyperlipidemia

== ENCOUNTER 2020-04-20 03:56 | Emergency (ER) | payer MEDICARE, BC ==
[~2020-04-20] VITALS: Ht 177.8 cm; Wt 81.6 kg
[~2020-04-20 03:56] MED LIST changes: +ATORVASTATIN CA80 M1 PO; +LASIX20 MG PO; +METOPROLOL SUCC25 M2 PO; +XARE20MG PO; +ZESTRIL10 MG PO
[2020-04-20 04:18] LABS: BASO # 0.1 10*3/uL (0.0-0.1); BASO % 0.4 % (0.0-1.0); EOS # 0.2 10*3/uL (0.0-0.4); EOS % 1.8 % (1.0-4.0); HEMATOCRIT 43.3 % (42.0-52.0); LYMPH # 1.5 10*3/uL (1.3-4.4); LYMPH % 13.4 % (27.0-41.0); MEAN CORPUSCULAR HGB 28.6 pg (27.0-31.0); MEAN CORPUSCULAR HGB CONC 31.4 g/dl (33.0-37.0); MEAN PLATELET VOLUME 10.2 fl (9.6-12.3); MONO # 1.2 10*3/uL (0.1-1.0); MONO % 10.9 % (3.0-9.0); NEUT # 8.2 10*3/uL (2.3-7.9); NEUT % 73.1 % (47.0-73.0); PLATELET COUNT AUTOMATED 402 10*3/uL (130-400); RED BLOOD COUNT 4.76 10*6/uL (4.50-5.90); WHITE BLOOD COUNT 11.3 10*3/uL (4.8-10.8)
[2020-04-20 04:30] LABS: ACT PARTIAL THROMBO TIME 47.3 SECONDS (20.0-32.1); INTERNATIONAL NORM RATIO 1.6 (2.0-3.5)
[2020-04-20 04:36] LABS: ALBUMIN 3.2 gm/dl (3.1-4.5); ALKALINE PHOSPHATASE 96 U/L (45-117); BUN 22 mg/dl (7-24); CHLORIDE 108 mmol/L (98-107); CREATININE 1.24 mg/dL (0.70-1.30); SGOT/AST 40 IU/L (3-35); SGPT/ALT 40 U/L (12-78); SODIUM 139 mmol/L (136-145); TOTAL PROTEIN 7.4 gm/dL (6.4-8.2)
== END 2020-04-20 07:15 | disposition short-term general hospital (02) ==
LOC: ED 03:56
PROVIDERS: Emergency Medicine
DX: I21.4 Non-ST elevation (NSTEMI) myocardial infarction (principal); M10.9 Gout, unspecified; Z88.0 Allergy status to penicillin; Z88.2 Allergy status to sulfonamides; Z88.1 Allergy status to other antibiotic agents; Z88.8 Allergy status to other drugs, medicaments and biological substances; Z79.899 Other long term (current) drug therapy

== ENCOUNTER 2020-10-07 17:37 | Emergency (ER) | payer MEDICARE, BC ==
[~2020-10-07] VITALS: Ht 177.8 cm; Wt 81.6 kg
[2020-10-07] MEDS ORDERED: DOXYCYCLINE100 M3 PO (18:18)
== END 2020-10-07 18:38 | disposition home or self-care (01) ==
LOC: ED 17:37
DX: S41.152A Open bite of left upper arm, initial encounter (principal); I10 Essential (primary) hypertension; I48.91 Unspecified atrial fibrillation; M10.9 Gout, unspecified; Z88.0 Allergy status to penicillin; Z79.899 Other long term (current) drug therapy; Z98.890 Other specified postprocedural states; W54.0XXA Bitten by dog, initial encounter; Y93.89 Activity, other specified; Y92.89 Other specified places as the place of occurrence of the external cause; Y99.8 Other external cause status

== ENCOUNTER 2020-10-08 12:57 | Emergency (ER) | payer MEDICARE, BC ==
[~2020-10-08] VITALS: Ht 177.8 cm; Wt 81.6 kg
[~2020-10-08 12:57] MED LIST changes: +DOXYCYCLINE100 M3 PO
== END 2020-10-08 13:48 | disposition home or self-care (01) ==
LOC: ED 12:57
DX: S60.222A Contusion of left hand, initial encounter (principal); S60.512A Abrasion of left hand, initial encounter; Z88.0 Allergy status to penicillin; Z88.8 Allergy status to other drugs, medicaments and biological substances; Z98.890 Other specified postprocedural states; Z90.49 Acquired absence of other specified parts of digestive tract; W54.0XXA Bitten by dog, initial encounter; Y93.89 Activity, other specified; Y92.89 Other specified places as the place of occurrence of the external cause; Y99.8 Other external cause status; Z79.899 Other long term (current) drug therapy

== ENCOUNTER → 2020-10-11 | Outpatient (CLI) | payer MEDICARE, BC | LOC: WOUNDCARE 00:58 | PROVIDERS: ATTEND Surgery | DX: S51.852A Open bite of left forearm, initial encounter (principal); I25.2 Old myocardial infarction; Z90.49 Acquired absence of other specified parts of digestive tract; Z98.41 Cataract extraction status, right eye; Z98.42 Cataract extraction status, left eye; Z87.891 Personal history of nicotine dependence; Z88.0 Allergy status to penicillin; Z88.2 Allergy status to sulfonamides; W54.0XXA Bitten by dog, initial encounter; Y93.89 Activity, other specified; Y92.89 Other specified places as the place of occurrence of the external cause; Y99.8 Other external cause status ==

== ENCOUNTER → 2020-10-18 | Outpatient (CLI) | payer MEDICARE, BC | LOC: WOUNDCARE 00:41 | PROVIDERS: ATTEND Nurse Practitioner | DX: S51.852D Open bite of left forearm, subsequent encounter (principal); I25.2 Old myocardial infarction; Z90.49 Acquired absence of other specified parts of digestive tract; Z98.41 Cataract extraction status, right eye; Z98.42 Cataract extraction status, left eye; Z87.891 Personal history of nicotine dependence; Z88.0 Allergy status to penicillin; Z88.2 Allergy status to sulfonamides; W54.8XXD Other contact with dog, subsequent encounter ==

== ENCOUNTER → 2020-10-25 | Outpatient (CLI) | payer MEDICARE, BC | LOC: WOUNDCARE 01:17 | PROVIDERS: ATTEND Nurse Practitioner | DX: S51.852D Open bite of left forearm, subsequent encounter (principal); S41.101D Unspecified open wound of right upper arm, subsequent encounter; I25.2 Old myocardial infarction; Z90.49 Acquired absence of other specified parts of digestive tract; Z98.41 Cataract extraction status, right eye; Z98.42 Cataract extraction status, left eye; Z87.891 Personal history of nicotine dependence; Z88.0 Allergy status to penicillin; Z88.2 Allergy status to sulfonamides; W54.8XXD Other contact with dog, subsequent encounter ==

== ENCOUNTER 2021-07-11 17:45 | Emergency (ER) | payer MEDICARE, BC | END 2021-07-11 19:24 | disposition home or self-care (01) | LOC: ED 17:45 | DX: S61.411A Laceration without foreign body of right hand, initial encounter (principal); I10 Essential (primary) hypertension; M10.9 Gout, unspecified; Z88.0 Allergy status to penicillin; Z88.1 Allergy status to other antibiotic agents; Z88.8 Allergy status to other drugs, medicaments and biological substances; Z79.899 Other long term (current) drug therapy; X78.0XXA Intentional self-harm by sharp glass, initial encounter; Y93.89 Activity, other specified; Y92.89 Other specified places as the place of occurrence of the external cause; Y99.8 Other external cause status ==

== ENCOUNTER 2023-11-29 19:46 | Emergency (ER) | payer MEDICARE, BC ==
[~2023-11-29] VITALS: Ht 177.8 cm; Wt 77.1 kg
[~2023-11-29 19:46] MED LIST changes: -Coumadin2.5 MG PO; -GUAIFENESIN PS PO; -VIBRAMYCIN100 MG PO
[2023-11-29] MEDS ORDERED: Coumadin2.5 MG PO (20:08)
[2023-11-29 21:14] LABS: BASO % 0.2 % (0.0-1.0); EOS % 0.1 % (1.0-4.0); HEMATOCRIT 48.9 % (42.0-52.0); LYMPH # 0.6 10*3/uL (1.3-4.4); LYMPH % 6.8 % (27.0-41.0); MEAN CELL VOLUME 93.3 fl (80.0-94.0); MEAN CORPUSCULAR HGB 30.3 pg (27.0-31.0); MEAN CORPUSCULAR HGB CONC 32.5 g/dl (33.0-37.0); MEAN PLATELET VOLUME 9.6 fl (9.6-12.3); MONO # 0.3 10*3/uL (0.1-1.0); NEUT # 7.8 10*3/uL (2.3-7.9); NEUT % 89.6 % (47.0-73.0); PLATELET COUNT AUTOMATED 244 10*3/uL (130-400); RED BLOOD COUNT 5.24 10*6/uL (4.50-5.90); RED CELL DISTRI WIDTH 14.7 % (0-14.5); WHITE BLOOD COUNT 8.7 10*3/uL (4.8-10.8)
[2023-11-29 21:33] LABS: ALKALINE PHOSPHATASE 77 U/L (46-116); BUN 18 mg/dl (9-23); CHLORIDE 106 mmol/L (98-107); POTASSIUM 4.2 mmol/L (3.4-5.1); SGPT/ALT 9 U/L (5-49); TOTAL PROTEIN 7.1 gm/dL (6.0-8.0)
[2023-11-29] MEDS ORDERED: Dextromethorphan Hydrobromid 1 TAB TAB PO ONE (22:35)
[2023-11-29] MEDS ORDERED: GUAIFENESIN PS PO (22:40)
[2023-11-29] MEDS ORDERED: VIBRAMYCIN100 MG PO (22:40)
== END 2023-11-29 22:53 | disposition home or self-care (01) ==
LOC: ED 19:46
PROVIDERS: Internal Medicine
DX: J40 Bronchitis, not specified as acute or chronic (principal); I10 Essential (primary) hypertension; I48.91 Unspecified atrial fibrillation; M10.9 Gout, unspecified; Z88.0 Allergy status to penicillin; Z88.2 Allergy status to sulfonamides; Z88.1 Allergy status to other antibiotic agents; Z88.8 Allergy status to other drugs, medicaments and biological substances; Z98.890 Other specified postprocedural states; Z90.49 Acquired absence of other specified parts of digestive tract

== ENCOUNTER → 2023-11-29 | Outpatient (CLI) | payer MEDICARE, BC ==
[~2023-11-29] MED LIST changes: +Coumadin2.5 MG PO; +GUAIFENESIN PS PO; +VIBRAMYCIN100 MG PO
== END | disposition home or self-care (01) ==
LOC: RAD 09:50
PROVIDERS: ATTEND Family Medicine
DX: R06.02 Shortness of breath (principal); R91.8 Other nonspecific abnormal finding of lung field; I10 Essential (primary) hypertension; Z87.09 Personal history of other diseases of the respiratory system

== ENCOUNTER 2024-05-28 22:36 | Emergency (ER) | payer MEDICARE, BC ==
[~2024-05-28] VITALS: Ht 177.8 cm; Wt 77.1 kg
[~2024-05-28 22:36] MED LIST changes: +Coumadin2.5 MG PO; +GUAIFENESIN PS PO; +VIBRAMYCIN100 MG PO
[2024-05-28] MEDS ORDERED: Tdap Vaccine 0.5 ML SYR (Adult Vaccine) IM ONE (22:55)
[2024-05-28] MEDS ORDERED: Doxycycline Hyclate 100 MG CAP PO ONE (23:35)
[2024-05-28] MEDS ORDERED: VIBRAMYCIN100 MG PO (23:37)
[2024-05-28] MEDS ORDERED: Gelatin Sponge 1 EACH SPON T ONE (23:40)
[2024-05-28] MEDS ORDERED: Bacitracin Zinc 14 GM TUBE T ONE (23:40)
== END 2024-05-29 00:07 | disposition home or self-care (01) ==
LOC: ED 22:36
DX: S61.431A Puncture wound without foreign body of right hand, initial encounter (principal); I10 Essential (primary) hypertension; I48.91 Unspecified atrial fibrillation; M10.9 Gout, unspecified; Z88.0 Allergy status to penicillin; Z88.2 Allergy status to sulfonamides; Z88.1 Allergy status to other antibiotic agents; Z88.8 Allergy status to other drugs, medicaments and biological substances; Z98.890 Other specified postprocedural states; Z90.49 Acquired absence of other specified parts of digestive tract; W54.0XXA Bitten by dog, initial encounter; Y93.89 Activity, other specified; Y92.009 Unspecified place in unspecified non-institutional (private) residence as the place of occurrence of the external cause; Y99.8 Other external cause status

== ENCOUNTER → 2024-05-29 | Outpatient (CLI) | payer MEDICARE, BC | END | disposition home or self-care (01) | LOC: WOUNDCARE 09:09 | PROVIDERS: ATTEND Nurse Practitioner Family | DX: S61.254A Open bite of right ring finger without damage to nail, initial encounter (principal); S61.256A Open bite of right little finger without damage to nail, initial encounter; I10 Essential (primary) hypertension; I25.2 Old myocardial infarction; Z87.891 Personal history of nicotine dependence; Z98.41 Cataract extraction status, right eye; Z98.42 Cataract extraction status, left eye; Z90.49 Acquired absence of other specified parts of digestive tract; Z79.01 Long term (current) use of anticoagulants; Z79.899 Other long term (current) drug therapy; W54.0XXA Bitten by dog, initial encounter; Y93.89 Activity, other specified; Y92.89 Other specified places as the place of occurrence of the external cause; Y99.8 Other external cause status ==

== ENCOUNTER → 2024-06-01 | Outpatient (CLI) | payer MEDICARE, BC | END | disposition home or self-care (01) | LOC: WOUNDCARE 01:44 | PROVIDERS: ATTEND Nurse Practitioner Family | DX: S61.254D Open bite of right ring finger without damage to nail, subsequent encounter (principal); S61.256D Open bite of right little finger without damage to nail, subsequent encounter; I10 Essential (primary) hypertension; I25.2 Old myocardial infarction; Z87.891 Personal history of nicotine dependence; Z98.41 Cataract extraction status, right eye; Z98.42 Cataract extraction status, left eye; Z90.49 Acquired absence of other specified parts of digestive tract; Z79.01 Long term (current) use of anticoagulants; Z79.899 Other long term (current) drug therapy; W54.0XXD Bitten by dog, subsequent encounter ==

== ENCOUNTER 2024-06-14 08:52 | Emergency (ER) | payer MEDICARE, BC ==
[~2024-06-14] VITALS: Ht 177.8 cm; Wt 77.1 kg
[2024-06-14 09:47] LABS: BASO # 0.1 10*3/uL (0.0-0.1); BASO % 0.5 % (0.0-1.0); EOS # 0.2 10*3/uL (0.0-0.4); EOS % 1.9 % (1.0-4.0); HEMATOCRIT 49.8 % (42.0-52.0); MEAN CELL VOLUME 93.1 fl (80.0-94.0); MEAN CORPUSCULAR HGB 30.3 pg (27.0-31.0); MEAN CORPUSCULAR HGB CONC 32.5 g/dl (33.0-37.0); MEAN PLATELET VOLUME 10.2 fl (9.6-12.3); MONO # 0.9 10*3/uL (0.1-1.0); MONO % 8.7 % (3.0-9.0); NEUT # 7.6 10*3/uL (2.3-7.9); NEUT % 77.1 % (47.0-73.0); PLATELET COUNT AUTOMATED 336 10*3/uL (130-400); RED BLOOD COUNT 5.35 10*6/uL (4.50-5.90); RED CELL DISTRI WIDTH 14.5 % (0-14.5); WHITE BLOOD COUNT 9.9 10*3/uL (4.8-10.8)
[2024-06-14 10:11] LABS: ALKALINE PHOSPHATASE 95 U/L (46-116); BUN 17 mg/dl (9-23); CHLORIDE 107 mmol/L (98-107); FREE T4 1.25 ng/dl (0.89-1.76); LIPASE 41 U/L (12-53); POTASSIUM 3.7 mmol/L (3.4-5.1); SGPT/ALT 21 U/L (5-49); TOTAL PROTEIN 7.8 gm/dL (6.0-8.0)
[2024-06-14 11:14] LABS: BILIRUBIN Negative (Negative); BLOOD Negative (Negative); CLARITY Clear (Clear); COLOR Yellow (Yellow); GLUCOSE Negative (Negative); KETONE Negative (Negative); LEUKO ESTERASE Negative (Negative); NITRITE Negative (Negative); SPECIFIC GRAVITY 1.015 (1.001-1.030); UROBILINOGEN 0.2 E.U./dl (0.0-1.0)
[2024-06-14] MEDS ORDERED: LEVETIRACETAM IN NACL (ISO-OS) 100 ML IV ONE (11:20)
[2024-06-14] MEDS ORDERED: PHYTONADIONE 10 MG in SODIUM CHLORIDE 0.9% 50 ML IV ONE ×2 (11:20→11:25)
[2024-06-14 11:22] LABS: URINE AMPHETAMINES Negative (1000ng/ml); URINE BARBITURATES Negative (200ng/ml); URINE BENZODIAZEPINES Negative (200ng/ml); URINE CANNABINOIDS (THC) Negative (50ng/ml); URINE COCAINE Negative (300ng/ml); URINE METHADONE Negative (300ng/ml); URINE OPIATES Negative (300ng/ml); URINE PHENCYCLIDINE Negative (25ng/ml)
[2024-06-14] MEDS ORDERED: Dexamethasone Sodium Phospha 20 MG/5 ML VIAL IV ONE (11:25)
[2024-06-14 11:33] LABS: EPITHELIAL CELLS 0-2
[2024-06-14] MEDS ORDERED: hydrALAZINE hydrochloride 20 MG/ML VIAL IV ONE (11:35)
[2024-06-14] MEDS ORDERED: PHYTONADIONE 10 MG/ML AMP ONE (11:50)
== END 2024-06-14 19:09 | disposition short-term general hospital (02) ==
LOC: ED 08:52
PROVIDERS: Emergency Medicine
DX: I62.9 Nontraumatic intracranial hemorrhage, unspecified (principal); Z20.822 Contact with and (suspected) exposure to COVID-19; R51.9 Headache, unspecified; H53.8 Other visual disturbances; I10 Essential (primary) hypertension; I48.91 Unspecified atrial fibrillation; M10.9 Gout, unspecified; R42 Dizziness and giddiness; J34.89 Other specified disorders of nose and nasal sinuses; Z79.899 Other long term (current) drug therapy; Z88.0 Allergy status to penicillin; Z88.2 Allergy status to sulfonamides; Z88.1 Allergy status to other antibiotic agents; Z88.8 Allergy status to other drugs, medicaments and biological substances; Z90.49 Acquired absence of other specified parts of digestive tract; Z98.890 Other specified postprocedural states

== ENCOUNTER 2025-01-09 14:38 | Emergency (ER) | payer MEDICARE, BC ==
[~2025-01-09] VITALS: Ht 177.8 cm; Wt 71.3 kg
[2025-01-09] MEDS ORDERED: Ondansetron Hydrochloride 4 MG/2 ML VIAL IV ONE (15:00)
[2025-01-09 15:16] LABS: BASO # 0.1 10*3/uL (0.0-0.1); BASO % 0.6 % (0.0-1.0); EOS # 0.2 10*3/uL (0.0-0.4); EOS % 2.0 % (1.0-4.0); MEAN CELL VOLUME 93.8 fl (80.0-94.0); MEAN CORPUSCULAR HGB 29.9 pg (27.0-31.0); MEAN PLATELET VOLUME 10.1 fl (9.6-12.3); MONO # 1.0 10*3/uL (0.1-1.0); MONO % 10.7 % (3.0-9.0); NEUT # 6.7 10*3/uL (2.3-7.9); NEUT % 71.8 % (47.0-73.0); NUCLEATED RED BLOOD CELL 0.0 % (0.0-0.0); NUCLEATED RED BLOOD CELL 0.0 10*3/uL (0.0-0.0); PLATELET COUNT AUTOMATED 305 10*3/uL (130-400); RED CELL DISTRI WIDTH 15.7 % (0-14.5)
[2025-01-09 15:27] LABS: BUN 23.0 mg/dl (9-23)
[2025-01-09] MEDS ORDERED: FUROSEMIDE 40 MG/4 ML VIAL IV ONE (15:50)
[2025-01-09] MEDS ORDERED: VIBRAMYCIN100 MG PO (15:55)
[2025-01-09] MEDS ORDERED: LASIX20 MG PO (15:55)
[2025-01-09] MEDS ORDERED: FUROSEMIDE 40 MG TAB PO ONE (16:00)
== END 2025-01-09 16:10 | disposition home or self-care (01) ==
LOC: ED 14:38
PROVIDERS: Emergency Medicine
DX: I11.0 Hypertensive heart disease with heart failure (principal); I50.9 Heart failure, unspecified; J40 Bronchitis, not specified as acute or chronic; R07.89 Other chest pain; I48.91 Unspecified atrial fibrillation; I25.10 Atherosclerotic heart disease of native coronary artery without angina pectoris; E78.5 Hyperlipidemia, unspecified; I25.2 Old myocardial infarction; Z88.0 Allergy status to penicillin; Z88.2 Allergy status to sulfonamides; Z88.8 Allergy status to other drugs, medicaments and biological substances; Z79.899 Other long term (current) drug therapy; Z79.01 Long term (current) use of anticoagulants; Z98.890 Other specified postprocedural states; Z90.49 Acquired absence of other specified parts of digestive tract

== ENCOUNTER → 2025-02-19 | Outpatient (CLI) | payer MEDICARE, BC ==
[2025-02-19 13:08] LABS: BUN 21 mg/dl (9-23)
== END | disposition home or self-care (01) ==
LOC: LAB 11:02
PROVIDERS: Family Medicine; ATTEND Student in an Organized Health Care Education/Training Program
DX: I82.401 Acute embolism and thrombosis of unspecified deep veins of right lower extremity (principal); N18.30 Chronic kidney disease, stage 3 unspecified

== ENCOUNTER 2025-05-25 12:40 | Emergency (ER) | payer MEDICARE, BC ==
[~2025-05-25] VITALS: Ht 177.8 cm; Wt 72.6 kg
[2025-05-25] MEDS ORDERED: SODIUM CHLORIDE 0.9% 500 ML IV ONE (13:10)
[2025-05-25 13:27] LABS: BASO # 0.1 10*3/uL (0.0-0.1); BASO % 0.5 % (0.0-1.0); EOS # 0.2 10*3/uL (0.0-0.4); EOS % 1.4 % (1.0-4.0); MEAN CELL VOLUME 94.1 fl (80.0-94.0); MEAN CORPUSCULAR HGB 30.7 pg (27.0-31.0); MEAN PLATELET VOLUME 9.9 fl (9.6-12.3); MONO # 0.9 10*3/uL (0.1-1.0); MONO % 8.0 % (3.0-9.0); NEUT # 8.6 10*3/uL (2.3-7.9); NEUT % 77.4 % (47.0-73.0); NUCLEATED RED BLOOD CELL 0.0 % (0.0-0.0); NUCLEATED RED BLOOD CELL 0.0 10*3/uL (0.0-0.0); PLATELET COUNT AUTOMATED 340 10*3/uL (130-400); RED CELL DISTRI WIDTH 14.9 % (0-14.5)
[2025-05-25 13:45] LABS: BUN 21 mg/dl (9-23)
[2025-05-25 14:47] LABS: BILIRUBIN Negative (Negative); BLOOD Negative (Negative); CLARITY Cloudy (Clear); COLOR Yellow (Yellow); KETONE Trace (Negative); LEUKO ESTERASE Negative (Negative); NITRITE Negative (Negative); PH 5.5 (4.5-8.0); SPECIFIC GRAVITY 1.025 (1.001-1.030); UROBILINOGEN 1.0 E.U./dl (0.0-1.0)
[2025-05-25 15:00] LABS: BACTERIA 1+; EPITHELIAL CELLS 0-2; MUCOUS 1+; RBC 0-2 rbc/hpf (0-2); WBC 0-2 wbc/hpf (0-5)
== END 2025-05-25 15:25 | disposition home or self-care (01) ==
LOC: ED 12:40
PROVIDERS: Emergency Medicine
DX: J06.9 Acute upper respiratory infection, unspecified (principal); I10 Essential (primary) hypertension; I48.91 Unspecified atrial fibrillation; M10.9 Gout, unspecified; Z98.890 Other specified postprocedural states; Z90.49 Acquired absence of other specified parts of digestive tract; Z88.0 Allergy status to penicillin; Z88.1 Allergy status to other antibiotic agents; Z88.5 Allergy status to narcotic agent